=== PATIENT | male | born 1970 | race Asian ===

== ENCOUNTER 2018-04-27 07:20 | Day surgery (SDC) | payer BC ==
[2018-04-27 08:22] LABS: ADD MAN DIFF? NO
[2018-04-27 08:28] LABS: BASOPHIL # 0.1 10^3/ul (0.0-0.1); BASOPHILS % 0.6 % (0.0-2.0); EOSINOPHILS # 0.4 10^3/ul (0.0-0.5); EOSINOPHILS % 2.9 % (0.0-7.0); HEMATOCRIT 44.6 % (42.0-52.0); HEMOGLOBIN 14.4 g/dl (14.0-18.0); LYMPHOCYTES # 3.1 10^3/ul (0.8-2.9); LYMPHOCYTES % 25.7 % (15.0-51.0); MEAN CORPUSCULAR HEMOGLOBIN 30.4 pg (29.0-33.0); MEAN CORPUSCULAR HGB CONC 32.3 g/dl (32.0-37.0); MEAN CORPUSCULAR VOLUME 94.1 fl (82.0-101.0); MEAN PLATELET VOLUME 10.9 fl (7.4-10.4); MONOCYTE # 0.7 10^3/ul (0.3-0.9); MONOCYTES % 6.1 % (0.0-11.0); NEUTROPHIL # 7.8 10^3/ul (1.6-7.5); NEUTROPHILS % 63.8 % (39.0-77.0); PLATELET COUNT 291 10^3/UL (140-415); RED BLOOD COUNT 4.74 10^6/ul (4.70-6.10); RED CELL DISTRIBUTION WIDTH 13.6 % (11.5-14.5)
[2018-04-27 08:28] LABS: WHITE BLOOD COUNT 12.2 10^3/ul (4.8-10.8)
[2018-04-27 08:34] LABS: HOLD TRANSMISSIONS 1
[2018-04-27 08:43] LABS: CHOL/HDL RATIO 6.3 RATIO; HDL CHOLESTEROL 25 mg/dl (27-67); LDL CHOLESTEROL,CALCULATED 53 mg/dl; TRIGLYCERIDES 405 mg/dl (0-149)
[2018-04-27 08:43] LABS: CHOLESTEROL 159 mg/dl (100-200)
[2018-04-27 08:47] LABS: INR 0.87; PROTIME 11.9 Sec (11.9-14.9); PT RATIO 0.9
[2018-04-27 08:48] LABS: PARTIAL THROMBOPLASTIN TIME 29.8 Sec (25.0-35.0)
[2018-04-27] MEDS ORDERED: NITROGLYCERIN (IC) 100 MCG/ML INJ (09:05)
[2018-04-27] MEDS ORDERED: VERAPAMIL 5 MG INJ (09:05)
[2018-04-27] MEDS ORDERED: HEPARIN 1000 UNITS/ML 10 ML INJ (09:05)
[2018-04-27] MEDS ORDERED: LIDOCAINE 100 MG SYRINGE (09:05)
[2018-04-27] MEDS ORDERED: IODIXANOL LOCM 100 ML BTL (09:05)
[2018-04-27] MEDS ORDERED: MIDAZOLAM 1 MG/ML 2 ML INJ (09:05)
[2018-04-27] MEDS ORDERED: FENTAnyl 50 MCG/ML VIAL (09:05)
[2018-04-27 09:42] LABS: ANION GAP 15 (8-16); BLOOD UREA NITROGEN 18 mg/dl (7-20); CALCIUM 9.7 mg/dl (8.4-10.2); CARBON DIOXIDE 21 mmol/L (21-31); CHLORIDE 109 mmol/L (97-110); CREATININE 1.09 mg/dl (0.61-1.24); GLUCOSE 184 mg/dl (70-220); POTASSIUM 4.2 mmol/L (3.5-5.1); SODIUM 141 mmol/L (135-144)
[2018-04-27] MEDS ORDERED: ACETAMINOPHEN 325 MG TAB PO (10:30)
[2018-04-27] MEDS ORDERED: ONDANSETRON 4 MG INJ IV (10:30)
[2018-04-27] MEDS ORDERED: AL HYDROX/MG HYDROX/SIMETH 30 ML CUP PO (10:30)
[2018-04-27] MEDS ORDERED: morphine 2 MG INJ IV (10:30)
[2018-04-27] MEDS: SOD CHLORIDE 0.9% 1,000 ML IV (10:55)
== END 2018-04-27 12:56 | disposition home or self-care (01) ==
LOC: CCL 07:20 → SDS 07:20 → CCL 12:56
DX: I25.10 Atherosclerotic heart disease of native coronary artery without angina pectoris (principal); I34.0 Nonrheumatic mitral (valve) insufficiency; I10 Essential (primary) hypertension; R94.39 Abnormal result of other cardiovascular function study; E78.5 Hyperlipidemia, unspecified; E11.9 Type 2 diabetes mellitus without complications
CPT/HCPCS: 71045; 80048; 80061; 82962; 85025; 85610; 85730; 93005; 93458